=== PATIENT | male | born 1990 | race Caucasian/White ===

== ENCOUNTER 2017-08-29 06:22 | Emergency (ER) | payer OTHER ==
[2017-08-29 06:36] VITALS: BP 126/71; PULSE 69; RESP 18; TEMP 97.9; O2SAT 95
--- NOTE | 2017-08-29 07:21 | C.PDOC ---
History Of Present Illness 26 y/o male with past medical history of asthma presents to ED with complaints of shortness of breath for 2 days. Patient states he could not find mouth piece of nebulizer but uses inhaler and symbicort which he took prior to arrival. At ED patient is speaking in full sentences and states symptoms resolved. Patient denies fever, chills, coughing, chest pain or any other complaints at this time. Time Seen by Provider: 08/29/17 07:15 Chief Complaint (Nursing): Shortness Of Breath History Per: Patient History/Exam Limitations: no limitations Onset/Duration Of Symptoms: Days Past Medical History Reviewed: Historical Data, Nursing Documentation, Vital Signs Vital Signs: Last Vital Signs Temp 97.9 F 08/29/17 06:31 Pulse 69 08/29/17 06:31 Resp 18 08/29/17 06:38 BP 126/71 08/29/17 06:31 Pulse Ox 95 08/29/17 08:58 - Medical History PMH: Asthma Surgical History: No Surg Hx Family History: States: No Known Family Hx - Social History Hx Tobacco Use: No Hx Alcohol Use: Yes Hx Substance Use: Yes - Immunization History Hx Tetanus Toxoid Vaccination: Yes Hx Influenza Vaccination: Yes Hx Pneumococcal Vaccination: Yes Review Of Systems Constitutional: Negative for: Fever, Chills Cardiovascular: Negative for: Chest Pain Respiratory: Positive for: Shortness of Breath. Negative for: Cough Gastrointestinal: Negative for: Nausea, Vomiting Skin: Negative for: Rash Physical Exam - Physical Exam Appears: Non-toxic, No Acute Distress Skin: Warm, Dry, No Rash Head: Normacephalic Oral Mucosa: Moist Neck: Normal ROM, Supple Chest: Symmetrical Cardiovascular: Rhythm Regular Respiratory: Normal Breath Sounds, No Rales, No Rhonchi, No Wheezing Gastrointestinal/Abdominal: Soft, No Tenderness, No Guarding, No Rebound Extremity: Normal ROM, No Pedal Edema Neurological/Psych: Oriented x3, Normal Speech, Normal Motor, Normal Sensation ED Course And Treatment O2 Sat by Pulse Oximetry: 95 (RA) Pulse Ox Interpretation: Normal Medical Decision Making Medical Decision Making: patient states he is feeling better after his home treatments. He just needs note for work. Lungs are clear bilaterally with good air entry. Patient stable for discharge Disposition Counseled Patient/Family Regarding: Diagnosis, Need For Followup - Disposition Referrals: Tony Araiza MD [Staff Provider] - Disposition: HOME/ ROUTINE Disposition Time: 07:18 Condition: STABLE Additional Instructions: Continue to use your nebulizer at home as needed every 4 hours Follow up with your doctor for further evaluation Prescriptions: Mask, Face [Nebulizer Aerosol Mask Adult] 1 dev XX PRN PRN #1 dev PRN Reason: Shortness Of Breath Instructions: Asthma (DC) Forms: [facility] [facility] (Romansh), Work Excuse - POA Present On Arrival: None - Clinical Impression Clinical Impression: Asthma - PA / LIFESTYLE CONSULTANT / Resident Statement MD/DO has reviewed & agrees with the documentation as recorded. - Scribe Statement The provider has reviewed the documentation as recorded by the Javieribnoemi Jorge All medical record entries made by the Javieribnoemi were at my direction and personally dictated by me. I have reviewed the chart and agree that the record accurately reflects my personal performance of the history, physical exam, medical decision making, and the department course for this patient. I have also personally directed, reviewed, and agree with the discharge instructions and disposition.
== END 2017-08-29 07:23 | disposition home or self-care (01) ==
LOC: C.ER 06:22
DX: J45.909 Unspecified asthma, uncomplicated (principal)

== ENCOUNTER 2017-12-17 17:10 | Emergency (ER) | payer SELFPAY ==
[2017-12-17 17:54] VITALS: BP 155/76; PULSE 61; RESP 18; TEMP 98.2; O2SAT 98
--- NOTE | 2017-12-17 18:11 | C.PDOC ---
History Of Present Illness 27 year old male presents to the ED for evaluation of right lower wisdom tooth pain x several days. Patient states he was previously advised that he needs an extraction but never followed up with dentist. Patient reports gum swelling. Denies fever. Patient also reports increased swelling to right ear for 1 month. 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 Denies hearing change and discharge. Patient reports minimal relief with Naprosyn. Patient states he only has pain to the area when he is training. CO PAIN R LOWER WISDOM TOOTH X SEV DAYS. PREV ADVISED NEED EXTRACTION BUT NEVER FU W DENTIST. FEELS GUM SWELLING. NO FEVER. ALSO CO INCR SWELLING R EAR X 1 MO. 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 NO HEARING CHANGE, DC. MIN RELIEF W NAPROSYN. PS ONLY HAS PAIN TO AREA WHEN IS TRAINING. EXAM MILD DIST HEENT +MILD R AURICULAR HEMATOMA W MIN LOCAL TEND, NO GROSS DEFORM. NO ERYTHEMA. +EMERGING R LOWER WISDOM TOOTH W LOCAL GUM SWELLING, NO ABSCESS. NO FACIAL SWELL REMAINDER NEG MDM ADVISED NEED FOR ENT EVAL, POSSIBLE HEMATOMA I&D. ADVISED NEED TO WEAR EAR GUARD. FOLLOW UP DENTAL. SALT WATER GARGLES. DENTAL REFERRAL INFO GIVEN Chief Complaint (Nursing): ENT Problem History Per: Patient History/Exam Limitations: no limitations Onset/Duration Of Symptoms: Days Current Symptoms Are (Timing): Still Present Quality: Positive for: "Pain" Additional History Per: Patient Past Medical History Reviewed: Historical Data, Nursing Documentation, Vital Signs Vital Signs: Last Vital Signs Temp 98.2 F 12/17/17 17:51 Pulse 61 12/17/17 17:51 Resp 18 12/17/17 17:51 BP 155/76 H 12/17/17 17:51 Pulse Ox 98 12/17/17 23:08 - Medical History PMH: Asthma Surgical History: No Surg Hx Family History: States: Unknown Family Hx - Social History Hx Tobacco Use: No Hx Alcohol Use: No Hx Substance Use: No - Immunization History Hx Tetanus Toxoid Vaccination: No Hx Influenza Vaccination: Yes Hx Pneumococcal Vaccination: No Review Of Systems Constitutional: Negative for: Fever, Chills ENT: Positive for: Mouth Pain (right lower wisdom tooth ), Other (swelling to right ear ) Physical Exam - Physical Exam Appears: Non-toxic, Other (in mild distress ) Skin: Normal Color, Warm, Dry Head: Atraumatic, Normacephalic, No Swelling (facial ) Eye(s): bilateral: Normal Inspection Ear(s): Left: Normal, Right: Other (mild auricular hematoma with minimal localized tenderness. no gross deformity. no erythema ) Oral Mucosa: Moist Teeth: Other (emerging right lower wisdom tooth with localized gum swelling ) Gingiva: Swelling (localized ), No Abscess Throat: Normal, No Erythema, No Exudate Neck: Supple Chest: Symmetrical, No Deformity, No Tenderness Cardiovascular: Rhythm Regular, No Murmur Respiratory: Normal Breath Sounds, No Rales, No Rhonchi, No Wheezing Extremity: Normal ROM, Capillary Refill (less than 2 seconds ) Neurological/Psych: Normal Speech, Normal Cognition Gait: Steady ED Course And Treatment O2 Sat by Pulse Oximetry: 98 (on RA ) Pulse Ox Interpretation: Normal Progress Note: Motrin PO, Percocet PO and Zofran PO administered. Progress - Continuity of Care Discussed pt. case with senior analytic consultant/specialty: Other ([facility]) Medical Decision Making Medical Decision Making: ADVISED NEED FOR ENT EVAL, POSSIBLE HEMATOMA I&D. ADVISED NEED TO WEAR EAR GUARD. FOLLOW UP DENTAL. SALT WATER GARGLES. DENTAL REFERRAL INFO GIVEN Disposition Counseled Patient/Family Regarding: Diagnosis, Need For Followup, Rx Given - Disposition Referrals: Manjinder Lagos MD [Staff Provider] - YOUR,DENTIST [Other] Disposition: HOME/ ROUTINE Disposition Time: 18:16 Condition: GOOD Additional Instructions: Cauliflower ear, medically known as auricular hematoma, is a condition of the outer ear that can cause deformity to the external ear if left treated. The condition results in a distortion of the outer ear resulting in a deformity that looks like the outside of a cauliflower over time. Who gets cauliflower ear? Cauliflower ear is common in athletes who participate in sports in which there are repeated friction or blunt force trauma to the ears as in the sports of boxing, rugby, martial arts, water polo, and wrestling. What causes cauliflower ear? The outer ear is primarily made of elastic cartilage. This cartilage gives the outer ear its form, but also allows for the flexibility and movement. Because cartilage of the ear does not have its own blood supply, the cartilage is dependent on the blood flow from the attached skin to supply its nutrients. There are two primary causes for cauliflower ear. The first is blunt force trauma (blow to the ear) that causes bleeding between the cartilage and skin. A hematoma forms between the cartilage and the skin compromising the blood flow to the cartilage. The second cause is repeated friction injuries to the ear such as when a wrestlers ear is compressed and rubbed against the mat by an opponent. With repeated friction forces, the skin and the cartilage can become causing bleeding between the skin and cartilage. The result is the same as in blunt force trauma with a hematoma forming between the cartilage and skin. If left untreated, the hematoma forms a fibrosis (abnormal tissue) blocking the cartilage from the skin. This in turn causes of the underlying cartilage tissue resulting in the cauliflower ear appearance. What can I do to prevent cauliflower ear? Because cauliflower ear is primarily caused by repeated friction and trauma to the ear, the condition can be prevented through the use of protective head gear. Specialized ear protection is available for specific sports in which athletes are at risk for ear injuries including wrestling, water polo, and boxing. It is important to make sure that the ear protection gear fit properly and that the chin strap is snug so that the head gear does not move during contact with another player. The ear cup should also be deep enough to ensure that the ear is not compressed when wearing the head gear. If the head gear is not properly fitted, the equipment itself could cause a hematoma. Unfortunately, in some sports, head gear is required for competition but not for practices. Athletes will only wear the head gear during competition when it is required, but will go without protective head gear during practices. What is the treatment for cauliflower ear? Once the earlobe has been injured, the ear should be packed with ice with moderate compression applied to the injured ear. If a hematoma has formed, the hematoma can be drained by a physician to avoid permanent deformity of the earlobe. To drain the ear, the physician can use either a hollow-bore needle or make a small incision. Once the hematoma has been cleared, a compressive dressing is then applied and kept in place so that the skin can reattach to the cartilage of the ear. The compressive dressing is left in place for three to five days and can be reapplied if necessary. To prevent infection, antibiotics may be given to the athlete after the procedure. If the cauliflower ear has already formed and it is too late to drain the hematoma, a ear, nose, throat physician or plastic surgeon can be consulted to repair and restore the natural look of the ear. The surgeon can thin down the thickened cartilage and then reposition the skin over it. Bandages may be worn for up to one week to control the bleeding and swelling. Any bruising and swelling from the procedures should dissipate within 10 to 14 days with the sutures removed after seven days. Prescriptions: Acetaminophen with Codeine [Tylenol with Codeine No. 3 300 mg-30 mg] 1 tab PO Q6 PRN #12 tab PRN Reason: Pain, Moderate (4-7) Ibuprofen [Motrin] 600 mg PO Q6 #30 tab Instructions: Impacted Tooth Forms: [employer] (Icelandic) - Clinical Impression Clinical Impression: Hematoma of auricle, Impacted tooth - Scribe Statement The provider has reviewed the documentation as recorded by the Scribe (Martine Cox) Provider Attestation: All medical record entries made by the Scribe were at my direction and personally dictated by me. I have reviewed the chart and agree that the record accurately reflects my personal performance of the history, physical exam, medical decision making, and the department course for this patient. I have also personally directed, reviewed, and agree with the discharge instructions and disposition.
[2017-12-17] MEDS ORDERED: Oxycodone/Acetaminophen 5/325 mg Tab PO STA (18:25)
== END 2017-12-17 18:40 | disposition home or self-care (01) ==
LOC: C.ER 17:10
DX: K01.1 Impacted teeth (principal); S00.431A Contusion of right ear, initial encounter; X58.XXXA Exposure to other specified factors, initial encounter